=== PATIENT | female | born 1960 | race Caucasian/White ===

== ENCOUNTER 2017-08-04 19:26 | Observation (INO) ==
[2017-08-04] MEDS ORDERED: *HR* Labetalol 20 MG/4 ML SYRINGE IVP ONE ×2 (20:46→22:22)
[2017-08-04] MEDS ORDERED: 0.9 % Sodium Chloride 1,000 ML IVC SCH (21:00)
[2017-08-04 21:01] LABS: Basophils # 0.1 K/mcL (0.0-0.2); Basophils % 0.5 %; Eosinophils # 0.3 K/mcL (0.0-0.6); Eosinophils % 2.8 %; Hematocrit 45.6 % (35.3-44.9); Hemoglobin 15.7 g/dL (11.5-15.4); Immature Granulocytes % 0.3 % (0-4); Lymphocytes # 4.4 K/mcL (0.6-4.6); Lymphocytes % 48.1 %; Mean Corpuscular HGB Conc 34.4 g/dL (31.6-35.5); Mean Corpuscular Hemoglobin 31.3 pg (28.0-33.3); Mean Platelet Volume 9.6 fL (9.4-12.4); Monocytes # 0.5 K/mcL (0.0-1.3); Monocytes % 5.7 %; Neutrophils # 3.9 K/mcL (1.6-8.9); Platelet Count 338 K/mcL (140-400); Red Blood Count 5.01 M/mcL (3.82-4.97); Red Cell Distribution Width 11.8 % (11.5-14.5); Segmented Neutrophils % 42.6 %
--- NOTE | 2017-08-04 21:05 | Emergency Department Note ---
Disposition Clinical Impression: Hypertensive urgency Disposition: Admitted As Inpatient Condition: Fair Referrals: Rik Simons MD [Primary Care Provider] - Forms: ED Satisfaction Letter, Work/School Release General Adult HPI - General Chief complaint: ED General Medical Stated complaint: High blood pressure Time Seen by Provider: 08/04/17 20:45 Source: patient Mode of arrival: private vehicle Limitations: no limitations Nursing Notes Reviewed: Yes Vital Signs Reviewed: Yes - History of Present Illness HPI Narrative: Patient reports she had a feeling of dizziness and lightheadedness this evening. She had a little nausea with this without vomiting. States dizziness is not vertiginous. She does report a blurriness to her vision without visual changes otherwise. Patient denies associated headache, chest pain or palpitations. She has not had any localized numbness, tingling or weakness. She has normal speech, mentation and ambulation. She denies any change in medications, cold preparations caffeine, diet pills or other stimulant. She denies change to her diet or stress. She states she has a long history of hypertension but blood pressures usually run 2 about 165/95. She reports recent illness with nausea for which she was seen at an urgent care 3 days ago and was started on a "nausea medicine". She denies any other new medicines. Onset (ago): hour(s) Pain Scale: 0 Consistency: constant Improves with: nothing Worsens with: nothing Associated symptoms: Reports: malaise, nausea/vomiting (No vomiting). Denies: confusion, chest pain, cough, diaphoresis, fever/chills, headaches, loss of appetite, rash, seizure, shortness of breath, syncope, weakness Treatments Prior to Arrival: none - Related Data Home Medications Medication Instructions Recorded Confirmed Escitalopram [Lexapro] 20 mg PO DAILY 05/23/16 01/06/17 Lisinopril [Zestril] 40 mg PO DAILY 05/23/16 08/04/17 Metoprolol Tartrate [Lopressor] 100 mg PO BID 05/23/16 08/04/17 Simvastatin [Zocor] 80 mg PO HS 05/23/16 01/06/17 Bupropion HCl [Wellbutrin Xl] 300 mg PO DAILY 07/23/16 08/04/17 Lansoprazole [Prevacid] 30 mg PO DAILY 07/23/16 01/06/17 Naproxen [EC-Naprosyn] 375 mg PO BID 07/23/16 01/06/17 Allopurinol [Zyloprim 100 MG] 100 mg PO DAILY 01/06/17 01/06/17 Polyethylene Glycol 3350 [MiraLAX 1 scoop PO DAILY 01/06/17 01/06/17 Powder Bulk 17.9 Oz] Previous Rx's Medication Instructions Recorded Benztropine [Cogentin] 1 mg PO BID #6 tablet 01/06/17 Ondansetron HCl [Zofran] 4 mg PO Q6HR PRN #8 tablet 01/06/17 Allergies Allergy/AdvReac Type Severity Reaction Status Date / Time No Known Allergies Allergy Verified 07/23/16 11:30 All systems ED: reviewed and negative except as stated. Past Medical History - Past Medical History Attestation: Yes The following information was validated with the patient. Source: patient, old records reviewed, obtained from family, nursing notes reviewed Medical history: Reports: GERD, hypertension, other Psychiatric history: Reports: anxiety, depression - Social History Smoking Status: Current every day smoker Smokeless Tobacco Status: No Alcohol use: Reports: none Drug use: Reports: none Physical Exam - General Limitations: no limitations General appearance: alert, in no apparent distress - Head Head exam: atraumatic, normocephalic, normal inspection - Eye Eye exam: Present: normal appearance, PERRL, EOMI. Absent: scleral icterus, conjunctival injection - ENT ENT exam: normal exam, normal oropharynx, mucous membranes moist - Neck Neck exam: Present: normal inspection, full ROM, trachea midline. Absent: tenderness, meningismus, lymphadenopathy - Chest Chest inspection: Present: normal inspection, symmetric chest wall rise. Absent : tenderness - Respiratory Respiratory exam: Present: normal lung sounds bilaterally. Absent: respiratory distress, wheezes, prolonged expiratory phase - Cardiovascular Cardiovascular exam: Present: regular rate, normal rhythm, normal heart sounds. Absent: tachycardia - Abdominal Exam Abdominal exam: Present: soft, Non-Tender, normal bowel sounds. Absent: tenderness, distention, guarding, rebound, rigidity - Extremities Exam Extremities exam: Present: normal inspection, full ROM, normal capillary refill. Absent: tenderness, pedal edema - Expanded Lower Extremity Exam Neurovascular/Tendon exam: Present: normal capillary refill. Absent: motor deficit, sensory deficit, tendon deficit Gait: observed and normal - Back Exam Back exam: Present: normal inspection, full ROM. Absent: tenderness - Neurological Exam Neurological exam: Present: alert, oriented X3, CN II-XII intact, normal gait, reflexes normal. Absent: motor sensory deficit - Psychiatric Psychiatric exam: Present: normal affect, normal mood. Absent: agitated, anxious - Skin Skin exam: Present: warm, dry, intact, normal color. Absent: diaphoresis, pallor Course Course Narrative: 2214: As discussed with the patient and her . Have reviewed all testing. Her pressure has been again climbing and is currently 224/119. She is written for another dose of labetalol as well as oral dose of clonidine. Verbal orders have been obtained for her observation in discussion with Dr. Jalloh. She remains asymptomatic at this time. Vital Signs Temperature 98.1 F 08/04/17 19:45 Pulse Rate 84 08/04/17 19:45 Respiratory Rate 14 08/04/17 19:45 Blood Pressure 249/136 08/04/17 19:45 O2 Sat by Pulse Oximetry 96 08/04/17 19:45 Temperature 98.1 F 08/04/17 20:10 Pulse Rate 77 08/04/17 22:07 Respiratory Rate 16 08/04/17 22:07 Blood Pressure 186/108 08/04/17 22:07 O2 Sat by Pulse Oximetry 98 08/04/17 22:07 Oxygen Delivery Oxygen Delivery Room Air Medical Decision Making - Medical Records Medical records reviewed: Yes I reviewed the patient's medical records. - Lab Data Lab results reviewed: Yes I reviewed the patient's lab results. Result diagrams: 08/04/17 20:56 08/04/17 20:56 Lab Results 08/04/17 08/04/17 08/04/17 Range/Units 20:56 20:56 20:56 WBC 9.2 (4.3-11.1) K/mcL RBC 5.01 H (3.82-4.97) M/mcL Hgb 15.7 H (11.5-15.4) g/dL Hct 45.6 H (35.3-44.9) % MCV 91.0 (83.0-100.0) fL MCH 31.3 (28.0-33.3) pg MCHC 34.4 (31.6-35.5) g/dL RDW 11.8 (11.5-14.5) % Plt Count 338 (140-400) K/mcL MPV 9.6 (9.4-12.4) fL Immature Gran % 0.3 (0-4) % Seg Neutrophils % 42.6 % Lymphocytes % 48.1 % Monocytes % 5.7 % Eosinophils % 2.8 % Basophils % 0.5 % Neutrophils # 3.9 (1.6-8.9) K/mcL Lymphocytes # 4.4 (0.6-4.6) K/mcL Monocytes # 0.5 (0.0-1.3) K/mcL Eosinophils # 0.3 (0.0-0.6) K/mcL Basophils # 0.1 (0.0-0.2) K/mcL Sodium 141 (136-145) mEq/L Potassium 4.1 (3.5-4.5) mEq/L Chloride 106 (98-109) mEq/L Carbon Dioxide 22 (19-29) mEq/L BUN 27 H (7-20) mg/dL Creatinine 1.19 H (0.57-1.11) mg/dL Est GFR ( Amer) 56 L (> 60) Est GFR (Non-Af Amer) 47 L (> 60) BUN/Creatinine Ratio 23 (6-26) Glucose 98 (70-99) mg/dL Calculated Osmolality 297 (280-300) Calcium 10.6 (8.6-10.8) mg/dL Troponin I 0.02 (0-0.03) ng/mL - EKG Data EKG #1 EKG attestation: Yes I reviewed and interpreted this EKG. EKG shows normal: sinus rhythm, axis, intervals, QRS complexes, ST-T waves Rate: normal (75) Interpretation: no acute changes, normal EKG
[2017-08-04 21:20] LABS: Calcium 10.6 mg/dL (8.6-10.8); Potassium 4.1 mEq/L (3.5-4.5)
[2017-08-04] MEDS ORDERED: cloNIDine HCl 0.1 MG TABLET PO ONE (22:22)
[2017-08-05] MEDS ORDERED: 0.9 % Sodium Chloride 1,000 ML IVC SCH (00:08)
[2017-08-05] MEDS ORDERED: Naloxone 0.4 MG/ML INJ IVP PRN (00:08)
[2017-08-05] MEDS ORDERED: MOM Conc 10 ML UD.LIQ PO PRN (00:08)
[2017-08-05] MEDS ORDERED: Ondansetron 4 MG/2 ML VIAL IVP PRN (00:08)
[2017-08-05] MEDS: Acetaminophen 325 MG TABLET PO PRN ×2 (04:19→10:22)
[2017-08-05] MEDS ORDERED: cloNIDine HCl 0.1 MG TABLET PO SCH (09:00)
[2017-08-05] MEDS ORDERED: Lisinopril 20 MG TABLET PO SCH (09:00)
[2017-08-05] MEDS ORDERED: BuPROPion XL (24 HR) 150 MG TABLET PO SCH (09:00)
[2017-08-05 10:42] VITALS: BP 133/78
--- NOTE | 2017-08-05 12:14 | Electrocardiograph Report ---
[place] [id number] Test Date: 2017-08-04 Pat Name: Myah Swenson Department: [id number] Room: [facility] Gender: F [employer] Dispatcher: [id number] : 1960 Requested By: Aaron Soto Order Number: [id number] Reading MD: Andrew Vega DO Measurements Intervals [place] Rate: 75 P: 51 MA: 152 QRS: -14 QRSD: 90 T: 20 QT: 390 QTc: 419 Interpretive Statements SINUS RHYTHM POSSIBLE LEFT VENTRICULAR HYPERTROPHY Electronically Signed On 08-05-2017 12:12:15 EST by Andrew Vega DO
--- NOTE | 2017-08-05 12:27 | Internal Med History&Physical ---
Date of Encounter: 08/05/17 Time of Encounter: 11:55 Assessment and Plan (1) Hypertensive urgency Current visit: Yes Status: Acute She was continued on Lopressor and Zestril in emergency room and given IV labetalol. Oral clonidine was also started. Her blood pressures are significantly improved now and she feels back to her baseline and wishes to be discharged home. Internal Medicine - H&P: HPI Chief complaint: Hypertension Admitted From: Emergency Dept Plans for Post Hospital Care: Home History of present illness: Ms. Swenson is a 57 year old female who came to emergency room stating she had onset of non-vertigo dizziness with lightheadedness earlier the evening of admission while at leisure. She had nausea but no vomiting. She checked her blood pressure at home and found it greater than 200 systolic. She came to emergency room and was evaluated and admitted to [facility] floor for ongoing care needs. She states she feels significantly improved at the present time and wishes to be discharged home. She has a history of hypertension but denies [place] heart failure angina DVT or pulmonary embolus. She states an average blood pressure reading at home is approximately 140/95. Past Med Surg Social Fam HX - Past Medical History Medical history: GERD, hypertension, other Psychiatric history: anxiety, depression - Social History Smoking Status: Current every day smoker Smokeless Tobacco Status: No Alcohol use: none Drug use: none - Family History Father Name: Danielito Masters Living Status: Hx Family Cancer: Yes (colon cancer) Internal Medicine - H&P: Meds Escitalopram [Lexapro] 20 mg PO DAILY 05/23/16 [History] Lisinopril [Zestril] 40 mg PO DAILY 05/23/16 [History] Metoprolol Tartrate [Lopressor] 100 mg PO BID 05/23/16 [History] Simvastatin [Zocor] 80 mg PO HS 05/23/16 [History] Bupropion HCl [Wellbutrin Xl] 300 mg PO DAILY 07/23/16 [History] Lansoprazole [Prevacid] 30 mg PO DAILY 07/23/16 [History] Naproxen [EC-Naprosyn] 375 mg PO BID 07/23/16 [History] Allopurinol [Zyloprim 100 MG] 100 mg PO DAILY 01/06/17 [History] Benztropine [Cogentin] 1 mg PO BID #6 tablet 01/06/17 [Rx] Ondansetron HCl [Zofran] 4 mg PO Q6HR PRN #8 tablet 01/06/17 [Rx] Polyethylene Glycol 3350 [MiraLAX Powder Bulk 17.9 Oz] 1 scoop PO DAILY [History] 3 Allergy/AdvReac Type Severity Reaction Status Date / Time No Known Allergies Allergy Verified 07/23/16 11:30 All Systems PM: A 10-system review of systems was performed and is negative for pertinent findings except as documented above in the HPI. Review of systems: Gen.: Her weight has been stable at approximately 70 kg the past 4 years Cardiovascular: As per history of present illness Respiratory: She smoked since age 15 up to 1-1/2 packs per day. She does not wear home oxygen has not had PFTs or evaluation for [facility] GI: She has GERD and cholecystectomy. She denies disorders of her liver or exocrine pancreas. : No history of hematuria dysuria or kidney stones. She has OAB and is been told she had "kidney failure" in the past Neurologic: No history of large distribution strokes or seizures. Endocrine: She has hyperlipidemia but no known diabetes or thyroid disease Hematology/oncology: No history of blood disorders cancers or anemia Psychiatric: She has anxiety and depression but no other mental health issues [place] skeletal: She has DJD, gout, vitamin D deficiency, and has had right rotator cuff surgery. - Constitutional Vitals: Temp Pulse Resp BP Pulse Ox 97.7 F 56 16 133/78 99 08/05/17 10:39 08/05/17 10:39 08/05/17 10:39 08/05/17 10:39 08/05/17 10:39 Exam: Gen.: She is a well developed well-nourished female who appears in no severe distress at present time HEENT: Head is atraumatic and normocephalic. Eyes: EOMI. There is no scleral icterus. Mouth: Mucosa is moist. Neck: Supple and nontender. There is no thyromegaly or adenopathy noted. Heart: Regular without murmurs gallops or ectopics Lungs: No wheezes or crackles are heard. Abdomen: Soft and nontender. No masses or guarding are noted. Extremities: There is no cyanosis edema or clubbing noted. Dorsalis pedis and posterior tibial pulses are trace palpable bilaterally. She has DJD changes of her hands. Neurologic: Mental status: She is talkative and a good historian. Cranial nerves: Smile is symmetric. Forehead wrinkles bilaterally. Tongue protrudes midline. EOMI. Motor: There is no pronator drift. Cerebellar: Finger to nose is intact bilaterally. Skin: Warm and dry Internal Med - H&P Results - Labs CBC & Chem 7: 08/04/17 20:56 08/04/17 20:56 - VTE Documentation of Mechanical Device: Graduated compression elastic hosiery
--- NOTE | 2017-08-05 12:35 | Discharge Summary ---
Date of Encounter: 08/05/17 Time of Encounter: 11:55 - Discharge Diagnosis (1) Hypertensive urgency Priority: Primary Status: Resolved - Discharge Medications Prescriptions: amLODIPine [Norvasc] 5 mg PO DAILY #30 tablet Home Medications: Escitalopram [Lexapro] 20 mg PO DAILY 05/23/16 [History] Lisinopril [Zestril] 40 mg PO DAILY 05/23/16 [History] Metoprolol Tartrate [Lopressor] 100 mg PO BID 05/23/16 [History] Simvastatin [Zocor] 80 mg PO HS 05/23/16 [History] Bupropion HCl [Wellbutrin Xl] 300 mg PO DAILY 07/23/16 [History] Lansoprazole [Prevacid] 30 mg PO DAILY 07/23/16 [History] Naproxen [EC-Naprosyn] 375 mg PO BID 07/23/16 [History] Allopurinol [Zyloprim 100 MG] 100 mg PO DAILY 01/06/17 [History] Benztropine [Cogentin] 1 mg PO BID #6 tablet 01/06/17 [Rx] Ondansetron HCl [Zofran] 4 mg PO Q6HR PRN #8 tablet 01/06/17 [Rx] Polyethylene Glycol 3350 [MiraLAX Powder Bulk 17.9 Oz] 1 scoop PO DAILY [History] amLODIPine [Norvasc] 5 mg PO DAILY #30 tablet 08/05/17 [Rx] Allergies/Adverse Reactions: 3 Allergy/AdvReac Type Severity Reaction Status Date / Time No Known Allergies Allergy Verified 07/23/16 11:30 Date of admission: 08/04/17 23:39 Primary care physician: Rik Simons MD - Patient Status Disposition: Home, Self-Care Condition: Fair Functional capacity at discharge: independent ambulation Overall status at discharge: patient is progressing back to baseline - Discharge Instructions Follow Up With: Rik Simons MD [Primary Care Provider] - 1 week - Diet and Activity Activity: resume usual activities as tolerated Diet: advance to your usual diet Hospital course: Ms. Swenson is a 57 year old female who came to emergency room stating she had onset of non-vertigo dizziness with lightheadedness earlier the evening of admission while at leisure. She had nausea but no vomiting. She checked her blood pressure at home and found it greater than 200 systolic. She came to emergency room and was evaluated and admitted to [facility] [place] [place] for ongoing care needs. Initial orders were written by the emergency room physician. I saw her on August 05 and performed a history physical and discharge. Her blood pressure return to safe range. When I saw her she wished to be discharged home which I felt was reasonable. She will continue Zestril and metoprolol. I added Norvasc. Her PCP Dr. Simons can further adjust medications as needed. I encouraged her to become a nonsmoker. - Time Spent with Patient Total time spent providing and/or coordinating discharge services: - Constitutional Vitals: Temp Pulse Resp BP Pulse Ox 97.7 F 56 16 133/78 99 08/05/17 10:39 08/05/17 10:39 08/05/17 10:39 08/05/17 10:39 08/05/17 10:39 - VTE Documentation of Mechanical Device: Graduated compression elastic hosiery
== END 2017-08-05 13:20 | disposition home or self-care (01) ==
LOC: EMEROOPIK 19:26 → INPPIK 19:26
PROVIDERS: ADMIT Internal Medicine; ATTEND Internal Medicine